=== PATIENT | female | born 1980 | race Caucasian/White ===

== ENCOUNTER 2022-02-08 05:36 | Observation (INO) | payer BC, OTHER ==
[~2022-02-08] VITALS: Ht 175.3 cm; Wt 74.8 kg
[~2022-02-08 05:36] MED LIST: CYAN100T44 PO; MULT-1044 PO; PRO40 PO
[2022-02-08 05:56] VITALS: BP_SYST 130
[2022-02-08] MEDS ORDERED: MORPHINE 4 MG INJ. 4 MG/ML VIAL IVP ONE (06:30)
[2022-02-08] MEDS ORDERED: ONDANSETRON HCL 4 MG/2 ML VIAL IVP ONE (06:30)
[2022-02-08 06:36] LABS: BASOPHILS # (AUTO) 0.1 K/uL (0.0-0.2); BASOPHILS % (AUTO) 1.1 % (0.0-2.0); EOSINOPHILS # (AUTO) 0.1 K/uL (0.0-0.4); EOSINOPHILS % (AUTO) 2.5 % (0.0-4.0); HEMATOCRIT 39.6 % (36-48); HEMOGLOBIN 13.2 g/dL (12.0-16.0); LYMPHOCYTES # (AUTO) 2.1 K/uL (1.0-5.5); LYMPHOCYTES % (AUTO) 38.8 % (20.5-51.5); MEAN CORPUSCULAR HEMOGLOBIN 28 pg (27-31); MEAN CORPUSCULAR HGB CONC 33 % (32-36); MEAN CORPUSCULAR VOLUME 82 fL (79.0-98.0); MONOCYTES # (AUTO) 0.4 K/uL (0.0-1.0); MONOCYTES % (AUTO) 7.5 % (1.7-9.3); NEUTROPHILS # (AUTO) 2.7 K/uL (1.8-7.7); NEUTROPHILS % (AUTO) 50.1 % (40.0-70.0); PLATELET COUNT (AUTO) 246 K/uL (130-430); RED BLOOD CELL COUNT(AUTO) 4.81 MIL/uL (4.2-6.2); RED CELL DISTRIBUTION WIDTH 14.1 % (9.0-15.0); WHITE BLOOD COUNT (AUTO) 5.4 K/uL (4.8-10.8)
[2022-02-08 06:45] LABS: CALCIUM 8.4 mg/dL (8.4-11.0); CREATININE 0.81 mg/dL (0.55-1.30); POTASSIUM 3.6 mmol/L (3.5-5.1)
[2022-02-08 06:50] LABS: ALBUMIN 3.2 g/dL (3.4-4.8); TOTAL BILIRUBIN 0.3 mg/dL (0.0-1.0)
[2022-02-08] MEDS ORDERED: NACL 0.9% 1,000 ML IV ONE (07:00)
[2022-02-08] MEDS ORDERED: MORPHINE 2 MG/ML INJ. SYRINGE IVP ONE (07:00)
[2022-02-08 08:49] LABS: BILIRUBIN,URINE NEGATIVE (NEGATIVE); BLOOD, URINE NEGATIVE (NEGATIVE); COLOR,URINE YELLOW (YELLOW); GLUCOSE,URINE NEGATIVE (NEGATIVE); KETONES,URINE NEGATIVE (NEGATIVE); LEUKOCYTE ESTERASE ,URINE NEGATIVE (NEGATIVE); NITRITE, URINE NEGATIVE (NEGATIVE); PROTEIN URINE NEGATIVE (NEGATIVE); UROBILINOGEN,URINE 0.2 (0.2-1.0)
[2022-02-08 08:52] LABS: CLARITY/URINE CLEAR (CLEAR)
[2022-02-08] MEDS ORDERED: OMEP10SU2 PO (11:13)
[2022-02-08] MEDS ORDERED: IBUPROFEN 800 MG TABLET PO PRN (11:15)
[2022-02-08] MEDS ORDERED: LR 500 ML IV SCH (11:15)
[2022-02-08] MEDS ORDERED: OXYCODONE/ACETAMINOPHEN 5-325 TABLET PO PRN (11:15)
[2022-02-08] MEDS: MORPHINE 4 MG INJ. 4 MG/ML VIAL IVP PRN ×2 (12:29→21:39)
[2022-02-08 14:13] VITALS: BP_SYST 121
[2022-02-08 16:00] VITALS: BP_SYST 129
[2022-02-08] MEDS ORDERED: ONDANSETRON HCL 4 MG/2 ML VIAL IVP PRN (21:15)
[2022-02-08 21:53] VITALS: BP_SYST 151
== END 2022-02-08 22:10 | disposition home or self-care (01) ==
LOC: SED 05:36 → SMU 11:04
PROVIDERS: ADMIT Obstetrics & Gynecology; ATTEND Obstetrics & Gynecology
DX: N83.202 Unspecified ovarian cyst, left side (principal); Z20.822 Contact with and (suspected) exposure to COVID-19; N83.201 Unspecified ovarian cyst, right side; Z79.899 Other long term (current) drug therapy
CPT/HCPCS: 36415; 76830; 76857; 80053; 81003; 85025; 87426; 96361; 96374; 96375; 96376; 99291; G0378; J2270 ×2; J2405; J7030; J7120

== ENCOUNTER 2023-07-06 21:09 | Emergency (ER) | payer BC, MEDICAID ==
[~2023-07-06] VITALS: Ht 175.3 cm; Wt 74.8 kg
[~2023-07-06 21:09] MED LIST changes: -CYAN100T44 PO; -MULT-1044 PO; +OMEP10SU2 PO; -PRO40 PO
[2023-07-06 21:17] VITALS: BP_SYST 131; PULSE 89; RESP 20; TEMP 98.1; O2SAT 99
[2023-07-06] MEDS ORDERED: AMOXICILLIN/POTASSIUM CLAV 875 MG TABLET PO ONE (22:30)
[2023-07-06] MEDS ORDERED: DIPHTH,PERTUSS(ACELL),TET VAC 0.5 ML VIAL (Tdap) I.M. ONE (22:30)
[2023-07-06] MEDS ORDERED: BACITRACIN 1 GM OINT TP ONE (22:30)
[2023-07-06] MEDS ORDERED: ACETAMINOPHEN 325 MG TABLET PO ONE (22:30)
[2023-07-06] MEDS ORDERED: AUG875 PO (23:26)
[2023-07-06] MEDS ORDERED: HYDR-3927 PO (23:26)
[2023-07-06] MEDS ORDERED: OXYCODONE/ACETAMINOPHEN 5-325 TABLET PO ONE (23:30)
[2023-07-06] MEDS ORDERED: HYDROcodone/ACETAMIN 5-325 MG TAB (NORCO/ VICODIN) PO ONE (23:30)
[2023-07-07 00:07] VITALS: BP_SYST 121; PULSE 88; RESP 17; TEMP 97.8; O2SAT 98
== END 2023-07-07 00:07 | disposition home or self-care (01) ==
LOC: SED 21:09
DX: S51.851A Open bite of right forearm, initial encounter (principal); Z85.41 Personal history of malignant neoplasm of cervix uteri; Z79.899 Other long term (current) drug therapy; W54.0XXA Bitten by dog, initial encounter; Y93.89 Activity, other specified; Y92.89 Other specified places as the place of occurrence of the external cause; Y99.8 Other external cause status
CPT/HCPCS: 73090; 90715; 99284